=== PATIENT | male | born 1940 | race Caucasian/White ===

== ENCOUNTER 2017-09-16 17:18 | Inpatient (IN) | payer MEDICARE ==
[~2017-09-16] VITALS: Ht 170.1 cm; Wt 79.4 kg
--- NOTE | ~2017-09-16 | PR ---
[place], [place] PROGRESS NOTE NAME: JOJO ELIZONDO UNIT #: [id number] ROOM: 311 DOCTOR: ADEOLA MOYA MD BIRTHDATE: [birth year] DOS: 09/25/2017 SUBJECTIVE: The patient seen and spoke with the staff. Per staff, the patient was pretty aggressive yesterday night. He was yelling, screaming at the staff. He also attempted to urinate at one staff, but then was redirected. As per staff, he is doing well this morning. No behavior problems or issues. He took his medication also. The patient was in the day area. He told me that he is doing okay, then he tried to get up from the chair and nurses came to make sure that he is safe in walking. He was not in any distress. MENTAL STATUS EXAMINATION: The patient was pleasant and cooperative. He was alert, but not oriented to day, date, month or year. He described his mood as "okay." Affect was mood congruent. Thought processes with confabulation. No delusion or paranoia noted. He denied suicidal ideation, intent or plan. He also denied any homicidal ideation, intent or plan. PLAN: 1. Continue current medication and care. 2. Continue redirection. 3. Encourage activities in groups. 4. Supportive care. ADEOLA MOYA MD CM:PNTRANS [id number] ADEOLA MOYA MD 09/25/[id number] interface
--- NOTE | ~2017-09-16 | DS ---
[place], [place] DISCHARGE SUMMARY NAME: JOJO ELIZONDO UNIT #: [id number] ROOM: 311 DOCTOR: TANYA RODRIGUEZ DO BIRTHDATE: [birth year] DOS: 09/30/2017 Day of discharge from [facility] 09/30/2017 on hospital day #14. CHIEF COMPLAINT: "What am I doing here." HISTORY OF PRESENT ILLNESS: The patient is a 77-year-old white male with a past medical history of dementia who was brought to [facility] from [facility] from [place] due to increased agitation and threatening behavior. The patient was admitted to [facility] upon being cleared medically. He was admitted to the psychiatric unit for further care and medical stabilization. Upon admission, the patient was initially pleasant and cooperative. The patient at that point was alert and oriented to self only. He stated that he believed it was 1940. He stated that he needed to go home and feed his animals. He did admit to the medical hospitalist team within the past few weeks. He was having difficulty urinating; however, he did deny fever, chills, shortness of breath, chest pain, nausea, vomiting, diarrhea, abdominal pain and other symptoms. The head CT on 09/15/2017 showed no acute intracranial process. Chest x-ray was unremarkable and valproic acid level was found to be low at 46. The patient was unable to identify correctly the date, time, month or year. He reported to the psychiatrist that he believed he was 48 years old, even though in fact is a 77-year-old male. He did not appear to be in any acute distress. PAST MEDICAL HISTORY: Diabetes mellitus, hypertension, GERD, hyperlipidemia, history of myocardial infarction, atherosclerotic heart disease, generalized muscle weakness, acquired hypothyroidism and normocytic anemia. PAST PSYCHIATRIC HISTORY: Significant for Alzheimer's dementia and behavioral disturbances, major depressive disorder and anxiety. SOCIAL HISTORY: The patient is . He has two children. 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 He currently lives at [place]. SUBSTANCE ABUSE HISTORY: No known history of illicit drug use, alcohol. The patient did admit upon admission that he rarely drinks. He is a former smoker; however, he quit several years ago. STRENGTH: The patient has good verbal skills. ALLERGIES: THE PATIENT IS ALLERGIC TO PENICILLINS. SUMMARY OF HOSPITAL COURSE: The patient was admitted to the [facility] due to intermittent explosive disorder and Alzheimer dementia with behavioral disturbances. He was admitted to the [facility] to rule out any organic causes and for medical stabilization. Upon admission, it was decided to change his Depakote to 500 mg twice daily. Seroquel was added at 25 mg at bedtime. He was continued on Exelon 4.6 mg a day. P.r.n. medications were ordered and supportive care was rendered at that time. His home medications included Celexa, Depakote, Aricept, Namenda, melatonin, quetiapine and trazodone. No [place], [place] DISCHARGE SUMMARY NAME: JOJO ELIZONDO UNIT #: [id number] ROOM: [facility] DOCTOR: TANYA RODRIGUEZ DO BIRTHDATE: [birth year] changes were made to his psychotropic regimen the following day as he was tolerating this well. Dr. Tristen Salinas was consulted for competency evaluation. At that time, Dr. Salinas deemed to the patient not competent to make informed healthcare decisions. He then discussed guardianship issues with Dr. Porras in the morning to determine what would be appropriate for the patient. The following day, September 20, patient was started on Namenda 5 mg p.o. daily. RPR was found to be nonreactive. Valproic acid was therapeutic at 79.9. Exelon patch was gradually increased to 13.3 mg extended release daily and supplemental nutrition such as Boost was added to diet. Namenda was gradually increased to 10 mg b.i.d. and he was started on Celexa 10 mg daily at noon with the plan to discharge on 09/23/2017. However, due to increased drowsiness and irritability, there were changes made to psychotropic regimen at that time. These changes including increasing Celexa from 10 mg to 20 mg daily, Namenda remained at 10 mg b.i.d. Depakote was discontinued and Latuda was increased at 60 mg and Ativan was increased as well. These changes were done due to increased drowsiness reported by nursing staff and increased irritability towards nursing staff. Over the weekend, no changes were made to psychotropic regimen as the patient appeared to be improving with these changes and was tolerating it well without any side effects. On TuesdaySeptember 26, nursing staff reported that the patient continued to be sexually preoccupied. At that time, it was decided to discontinue Celexa. Nursing also reported that the patient had done better while on Depakote at a higher dose than on a higher dose of Latuda and that p.o. Ativan was ineffective. At this time, it was decided to discontinue Latuda and discontinued the p.o. Ativan. Depakote was restarted at 200 mg twice daily and 500 mg at bedtime to offer mood stability and we utilized Vistaril 50 mg p.o. q. 4 hours as needed as a different p.r.n. to see if this would prove to be more effective and we started a low dose of Provera 10 mg daily to decrease his libido. The patient was continued to be engaged in individual galarza milieu activities with attempts to return to the least restrictive environment, was psychiatrically stable. For the remainder of the week, the patient continued to tolerate this regimen well. He was ambulatory with a steady gait. He was able to verbalize his needs. Sleep and appetite have normalized, but he did allow staff to reorient him when needed. No side effects were exhibited from psychotropic regimen and he has improved significantly enough to be discharged at this point. He is psychiatrically and medically stable at this point for discharge. MENTAL STATUS AT DISCHARGE: The patient is alert and oriented to self only. Mood is trending towards euthymia. His affect is more appropriate. Short term and [facility] memory still are very poor and problematic. However, verbal communication has tremendously improved throughout his stay. He is now able to verbalize his needs. Sleep has improved. Appetite is now improved and readily stable. He engages in conversation readily and is easily reoriented by nursing staff. No signs of evelyn or hypomania. No signs of auditory or visual hallucinations. FINAL DIAGNOSES AT DISCHARGE: 1. Impulses control disorder, not otherwise specified. 2. Alzheimer dementia. 3. Disposition: The patient's medications have been e-prescribed to [facility] [place], [place] DISCHARGE SUMMARY NAME: JOJO ELIZONDO UNIT #: [id number] ROOM: 311 DOCTOR: TANYA RODRIGUEZ DO BIRTHDATE: [birth year] pharmacy. These have been provided electronically so that they may be readily available upon discharge. The patient to be discharged to return back to [facility]. The patient is to be followed by the staff psychiatrist there to address and continue psychotropic regimens therapy. Tanya Rodriguez DO JAMILAH PORRAS MD CM:LILLY [id number] TANYA RODRIGUEZ DO 09/30/17 1731 interface
--- NOTE | ~2017-09-16 | CON ---
[place], [place] REPORT OF CONSULTATION NAME: JOJO ELIZONDO UNIT #: [id number] ROOM: 311 DOCTOR: NIRAV TIJERINA ED.D (MOISE) BIRTHDATE: [birth year] DOS: 09/19/2017 HISTORY OF PRESENT ILLNESS: The patient is a 77-year-old male referred by Dr. Porras for competency evaluation. At the present time, he is in the [facility] at [facility]. He states he is and had 2 children. 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 He states his family physician is Dr. Saleh. His medical history is pertinent for diabetes mellitus, hypertension, GERD, myocardial infarction, arteriosclerotic heart disease and Alzheimer's dementia. His medications include insulin, lisinopril, gabapentin, Synthroid, ferrous sulfate, Exelon, Seroquel and Depakote. This patient states he rarely drinks alcoholic beverages and quit smoking many years ago. He states he is in the hospital, but has no idea what hospital he is in. He has no idea what city he is in. He has no idea of the month of the year or the year. He states this probably sometime in the 1940s, but he stated he was not certain. He is clearly quite confused and suffering from dementia. Apparently, he was quite agitated prior to admission to the hospital, although he is doing much better at this time. In my opinion, this patient is clearly not competent to make informed healthcare decisions. I am not certain whether or not he is going to be discharged back to the custodial in the next day or so; however, if he is, it will probably not be necessary to guardianship at this time. His has been making all decisions for him at the custodial. I will discuss the guardianship issues with Dr. Porras in the morning to determine whether this would be appropriate or not for this patient. DIAGNOSIS: Major neurocognitive disorder - Alzheimer disease with behavioral disturbance. RECOMMENDATIONS: In my opinion, this patient is clearly not competent to make informed healthcare decisions. Thank you very much for this consult. NIRAV TIJERINA ED.D CM:CONSTR:REPORT OF CONSULTATION 48 09/19/17 7316 interface JAMILAH PORRAS MD
--- NOTE | ~2017-09-16 | PR ---
[place], [place] PROGRESS NOTE NAME: JOJO ELIZONDO UNIT #: [id number] ROOM: 311 DOCTOR: JAMILAH PORRAS MD BIRTHDATE: [birth year] DOS: 09/19/2017 CHIEF COMPLAINT: "Quit yelling at me." SUMMARY OF THE VISIT: The patient was attempted to be interviewed when he was resting in bed. I called out his name multiple times and finally as I called the last time rather loudly, he awoke, looked angrily at me and ____ me for yelling at him. As I tried to redirect and calm him that I was just checking in on him and see if he needed anything, he continued to be somewhat terse, but more redirectable. Overall, he does seem to have been improving and while he still exit seeks, he does redirect more readily per nursing report. He is tolerating the current drug regimen well. MENTAL STATUS: He is alert and oriented to person, possibly place, not time. Mood does seem to be rather on edge, irritable, but redirectable. There is no evelyn or hypomania. There are no gross psychotic symptoms. Short term memory continues to be problematic. PLAN: I will go ahead and increase Exelon patch from 4.6 to 9.5 mg daily and plan to augment with Namenda eventually. I will check a valproic acid level in the a.m. to ensure that it is therapeutic, continue to engage in individual and galarza milieu activity, returning then to the least restrictive environment when psychiatrically stable. JAMILAH PORRAS MD CM:PNTRANS [id number] JAMILAH PORRAS MD 09/19/17 0931 interface
--- NOTE | ~2017-09-16 | PR ---
[place], [place] PROGRESS NOTE NAME: JOJO ELIZONDO UNIT #: [id number] ROOM: 311 DOCTOR: TANYA RODRIGUEZ DO BIRTHDATE: [birth year] DOS: 09/29/2017 PSYCHIATRIC PROGRESS NOTE CHIEF COMPLAINT: "When am I going home?" SUMMARY OF VISIT: The patient is a 77-year-old white male who was admitted to the [facility] from the [facility] due to increasing agitation while being a resident at a [facility]. He is currently on hospital day #13 with improved mood. The patient was interviewed this morning in the hallway. He was ambulating with a steady gait. At that time, the patient did not voice any concerns. He does report having increased appetite. Per nursing staff, the patient was noted to have urinary incontinence this morning. They also reported he had been combative towards staff; however, no signs of combative behavior were noted this morning during my visit. The patient did not voice any concerns at this time. MENTAL STATUS EXAMINATION: The patient is alert and oriented to self only. Mood is trending towards euthymic. His affect is more appropriate. Short-term memory is still very poor. The patient's verbal communication has tremendously improved throughout his stay. He is currently now able to verbalize his needs. Sleep has improved. Appetite has improved and he now readily engages in conversation. PLAN: 1. No changes to be made to current psychotropic regimen as the patient is tolerating this well. 2. We have renewed Ativan p.r.n. orders. 3. Disposition: The patient to be discharged tomorrow, Tuesday09/30/2017 back to [facility]. We will continue to engage the patient in individual and galarza milieu activity, returning to the least restrictive environment when psychiatrically stable. Tanya Rodriguez DO [place], [place] PROGRESS NOTE NAME: JOJO ELIZONDO UNIT #: [id number] ROOM: 311 DOCTOR: TANYA RODRIGUEZ DO BIRTHDATE: [birth year] JAMILAH PORRAS MD CM:MESHA 1 [id number] TANYA RODRIGUEZ DO 09/29/17 1333 interface
--- NOTE | ~2017-09-16 | PR ---
[place], [place] PROGRESS NOTE NAME: JOJO ELIZONDO UNIT #: [id number] ROOM: 311 DOCTOR: TANYA RODRIGUEZ DO BIRTHDATE: [birth year] DOS: 09/21/2017 CHIEF COMPLAINT: "I am chewing tobacco." SUBJECTIVE: The patient is a 77-year-old white male who was admitted to the [facility] from [facility] due to increasing agitation while being a resident at a detention, currently on hospital day #5 with improvement in mood. The patient was initially interviewed in the dining room. The patient reported poor appetite and stated that he needs to force himself to eat, however, later nursing staff reported the patient completed 100% consumption of his breakfast. The patient at this time was requesting chocolate milk. I asked him if he was still hungry. He said he would be willing to try Boost supplement. The patient was sitting in the dining room with another male patient eating breakfast together. The patient did not voice any other concerns at this time. The patient appeared to be confused, but he did not show any signs of combative behavior. MENTAL STATUS EXAMINATION: The patient is alert and oriented to self only. Mood is trending towards euthymic. Affect is appropriate. Short term memory still continues to be problematic. The patient was later interviewed and found to be consuming tissue paper. This was when he offered to share his chewing tobacco. The patient cannot recall if he had had breakfast that morning. PLAN: 1. We have increased Namenda 5 mg p.o. daily to 5 mg twice daily. 2. The patient started on Exelon patch 13.3 mg patch extended release daily. 3. Supplemental nutrition Boost has been ordered. 4. The patient likely to be discharged on 09/23/2017. Until then we will continue to engage the patient in individual and galarza new activity, returning to the least restrictive environment when psychiatrically stable. Tanya Rodriguez DO [place], [place] PROGRESS NOTE NAME: JOJO ELIZONDO UNIT #: [id number] ROOM: 311 DOCTOR: TANYA RODRIGUEZ DOTE: 41 JAMILAH PORRAS MD CM:MESHA [id number] TANYA RODRIGUEZ DO 09/21/17 2240 interface
--- NOTE | ~2017-09-16 | PR ---
[place], [place] PROGRESS NOTE NAME: JOJO ELIZONDO UNIT #: [id number] ROOM: 311 DOCTOR: TANYA RODRIGUEZ DO BIRTHDATE: [birth year] DOS: 09/22/2017 CHIEF COMPLAINT: "Can I have something to drink?" SUMMARY OF VISIT: The patient is a 77-year-old white male who was admitted to the [facility] from [facility] due to increasing agitation while being a resident in a long-term, currently on hospital day #6 with mood irritability last night. Per nursing staff, the patient became disruptive and intrusive towards other patients on the galarza and towards nursing staff. The patient became irritable and began to yell at staff. He made verbal comments that were sexually oriented towards another female patient. Attempts to intervene with one-on-one talking with staff, reorienting the patient and removing him from the room and placing him in a quiet environment did not appear to be effective. Ativan p.o. p.r.n. was given at 18:37. The patient slept 8 hours. This morning the patient was sleeping and was later interviewed in the hallway. He was in a wheelchair at that time. The patient then reported he was thirsty and was inquiring if he could have something to drink. The patient did not wake up for breakfast this morning. The patient was provided Ensure for nutritional supplement at that time. The patient does not voice any concerns at this point. No signs of combative behavior were noted this morning during assessment: The patient did appear to be slightly confused. The patient is currently eating lunch and does not appear to be in any kind of distress. MENTAL STATUS EXAMINATION: The patient is alert and oriented to self only. Mood last night was labile. Affect is appropriate this morning. Short term memory is still problematic as it has gaps. The patient once again could not recall if he had had breakfast; however, per nursing staff, he was sleeping. During the time breakfast trays were passed out, the patient was in the galarza. PLAN: 1. Increase Namenda from 5 mg twice daily to 10 mg in the morning and 5 mg at bedtime. 2. The patient to start Celexa 10 mg every afternoon at noon, 1200. 3. Continue supplemental nutrition with Ensure as ordered. 4. The patient to be discharged to [facility], likely to be discharged tomorrow, 09/23/2017. We will continue to engage the patient in individual and galarza milieu activity, returning to the least restrictive environment when psychiatrically stable. Tanya Rodriguez DO [place], [place] PROGRESS NOTE NAME: JOJO ELIZONDO UNIT #: [id number] ROOM: [facility] DOCTOR: TANYA RODRIGUEZ DO BIRTHDATE: [birth year] JAMILAH PORRAS MD CM:PNCELINA [id number] TANYA RODRIGUEZ DO 09/22/17 1618 interface
--- NOTE | ~2017-09-16 | PR ---
[place], [place] PROGRESS NOTE NAME: JOJO ELIZONDO UNIT #: [id number] ROOM: 311 DOCTOR: TANYA RODRIGUEZ DO BIRTHDATE: [birth year] DOS: 09/27/2017 CHIEF COMPLAINT: "Oh hello, good morning." SUMMARY OF VISIT: The patient is a 77-year-old white male who was admitted to the [facility] from [facility] due to increasing agitation while being a resident at a correction, currently on hospital day #11 with improved mood and decreased irritability. Per nursing staff, the patient slept more than 8 hours last night, which was not interrupted. The patient was interviewed this morning in the dining room. He was eating breakfast. He did not appear to be in any distress. The patient denies pain and do not voice any complaints at this time. Per nursing staff, the patient does not verbalized any inappropriate sexual comments towards nursing staff and other patients in the galarza. The patient overall appears to be doing better. MENTAL STATUS EXAMINATION: The patient is alert and oriented to self. Mood is appropriate. Affect is appropriate. Short term memory still appears to be problematic. The patient was able to verbalize that he did not need anything at this time. He did state that he slept better last night. PLAN: 1. The patient is scheduled to receive Vistaril 50 mg p.o. every 1600. 2. The patient likely to be discharged on 09/30/2017, back to [facility]. The patient appears to be responding well to current psychotropic regimen. No other changes to be made at this time. We will continue to engage the patient in individual and galarza milieu activity, returning to the least restrictive environment when psychiatrically stable. Tanya Rodriguez, DO JAMILAH PORRAS MD CM:MESHA [id number] TANYA RODRIGUEZ DO 09/27/17 1119 interface
--- NOTE | ~2017-09-16 | WRIGHTHP ---
[place], [place] PATIENT HISTORY AND PHYSICAL EXAM [id number] UN[facility] #: [id number] ROOM: 311 DOCTOR: ADEOLA MOYA MD BIRTHDATE: [birth year] DOS: 09/16/2017 REASON FOR HOSPITALIZATION: Increased agitation, threatening staff and other resident in the longterm. HISTORY OF PRESENT ILLNESS: The patient seen and chart reviewed. A 77-year-old white male with history of dementia who was brought into [facility] from longterm for increased agitation and threatening behavior. The patient got cleared medically into the ER and then sent to the psychiatric unit for further care and stabilization. The patient was initially pleasant and cooperative. He was sitting in the dining area. He reports doing well. He said that he does not know why he was brought in here. He told me that he also does not know where he is right now. He wanted to go home. He claims that his and his pets are at home. The patient is not aware of the day, date, month, or year. He told me that he is a 48-year-old, but the fact is that he is a 77-year-old. He was not in any acute distress. PAST MEDICAL HISTORY: Diabetes mellitus, hypertension, GERD, hyperlipidemia, history of myocardial infarction, atherosclerotic heart disease, generalized muscle weakness. PAST PSYCHIATRIC HISTORY: Significant for Alzheimer's dementia and behavioral disturbances. SUBSTANCE ABUSE HISTORY: No drugs or alcohol. SOCIAL HISTORY: The patient was staying in a longterm. He was not able to provide any detail. MENTAL STATUS EXAMINATION: The patient was pleasant and cooperative at first, but later on becomes irritable and angry. He was alert, but not oriented to day, date, month, or year. He described his mood as "I don't know." Affect was labile, irritable, angry. Thought processes with confabulation. He denied auditory or visual hallucination. No delusion or paranoia noted. He denied suicidal ideation, intent or plan. He also denied any homicidal ideation, intent or plan. Insight and judgment impaired. ASSESSMENT: 1. Intermittent explosive disorder. 2. Alzheimer's dementia with behavioral disturbances. PLAN: 1. I will change his Depakote to 500 mg twice a day. 2. I will add Seroquel 25 mg at night. 3. I will continue Exelon 4.6 mg a day. 4. We will continue p.r.n. medication. 5. Continue redirection and supportive care. [place], [place] PATIENT HISTORY AND PHYSICAL EXAM NAME: JOJO ELIZONDO UNIT #: [id number] ROOM: [facility] DOCTOR: ADEOLA MOYA MD BIRTHDATE: [birth year] 6. Encourage activity in groups. ADEOLA MOYA MD CM:HISPHYS:PATIENT HISTORY AND PHYSICAL EXAMINATION [id number] ADEOLA MOYA MD 09/17/17 2136 interface
--- NOTE | ~2017-09-16 | PR ---
[place], [place] PROGRESS NOTE NAME: JOJO ELIZONDO UNIT #: [id number] ROOM: 311 DOCTOR: TANYA RODRIGUEZ DO BIRTHDATE: [birth year] DOS: 09/23/2017 He is a 77-year-old male. CHIEF COMPLAINT: "I need to take a league." SUMMARY OF VISIT: The patient is a 77-year-old white male who was admitted to the [facility] from [facility] due to increasing agitation while being a resident in a [facility], currently on hospital day #7 with persistent mood instability and irritability last night. Per nursing staff, the patient became combative. He was noted to be beating on doors and windows. He was yelling at that time. Attempts to redirect the patient were not effective. The patient was given 1 mg Ativan p.o. at 1800. This morning, the patient was found to be groggy and sleeping. He did not eat breakfast this morning. The patient was later instructed to attend group; however, he was noted to be sleeping at this time. The patient was then interviewed in a wheelchair in the hallway where he stated he needed to use the restroom. The patient was falling asleep mid-sentence; however, was easily arousable, but sleepy. The patient did not voice any concerns at this time. The patient denied being hungry. He did report that he would not like to have a snack at this time. MENTAL STATUS EXAMINATION: The patient is alert and oriented to self only. Mood is labile and volatile. Affect is drowsy and lethargic, but easily arousable. Short term memory is still problematic. The patient was falling asleep mid-sentence through examination this morning. He was unable to answer questions appropriately. The patient was unable to answer questions at this time. PLAN: 1. The plan to discharge the patient to [facility] has been placed on hold due to patient's increased irritability and drowsiness. The patient likely to be discharged sometime next week. 2. The following changes to psychotropic regimen have been made. We have increased the Celexa from 10 mg to 20 mg every noon, 1200. We have increased Namenda from 5 mg p.o. b.i.d. to 10 mg b.i.d. We have discontinued Depakote. We have increased Latuda to 60 mg p.o. q. 1600 We have decreased Ativan from 1 mg p.o. p.r.n. to 0.5 mg p.o. and IM q. 4 hours p.r.n. as the patient sometimes has refused p.o. medication. 3. We will continue to engage the patient in individual and galarza milieu activity with plan to returning to the least restrictive environment when psychiatrically stable. Tanya Rodriguez DO [place], [place] PROGRESS NOTE NAME: JOJO ELIZONDO UNIT #: [id number] ROOM: [facility] DOCTOR: TANYA RODRIGUEZ DO BIRTHDATE: [birth year] JAMILAH PORRAS MD CM:MESHA [id number] TANYA RODRIGUEZ DO 09/23/17 1534 interface
--- NOTE | ~2017-09-16 | PR ---
[place], [place] PROGRESS NOTE NAME: JOJO ELIZONDO UNIT #: [id number] ROOM: 311 DOCTOR: ADEOLA MOYA MD BIRTHDATE: [birth year] DOS: 09/24/2017 PSYCHIATRIC PROGRESS NOTE SUBJECTIVE: The patient seen and spoke with staff. Per staff, patient's is doing better today, but usually he gets pretty irritable, angry and confused at the noon time. Per nursing staff, his medication got changed yesterday and has been doing well since then. The patient was pleasant and cooperative. He was in the day area in a chair. He reports doing okay. He was not in any distress. He is compliant with his medication and there is no side effect from the medication. MENTAL STATUS EXAMINATION: Pleasant, cooperative, described his mood as "okay/" Affect was mood congruent. Thought process with confabulation. He denied auditory or visual hallucination. No delusion or paranoia noted. He denied suicidal ideation, intent or plan. He also denied homicidal ideation, intent or plan. PLAN: 1. Continue current medication and care. 2. Continue redirection. 3. Encourage activity in groups. 4. Supportive care. ADEOLA MOYA MD CM:PNTRANS [phone] ADEOLA MOYA MD 09/24/17 2016 interface
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
--- NOTE | ~2017-09-16 | PR ---
[place], [place] PROGRESS NOTE NAME: JOJO ELIZONDO UNIT #: [id number] ROOM: 311 DOCTOR: ADEOLA MOYA MD BIRTHDATE: [birth year] DOS: 09/18/2017 PSYCHIATRIC PROGRESS NOTE SUBJECTIVE: The patient was seen and spoke with the staff. Per staff, the patient got p.r.n. medication last night, wanted to leave. Per nursing staff, he has been sleeping since then. No other behavioral problems or issues. The patient was pleasant and cooperative. He was in his bed, sleeping. When I called his name, he opened his eyes, but then fell back to sleep again. He did not answer any of my question. He does not seem to be in any distress. MENTAL STATUS EXAMINATION: The patient was pleasant and cooperative. He was alert. Not able to do full mental status examination as the patient was in full sleep. PLAN: 1. Continue current medication and care. 2. Encourage activities in groups. 3. Continue redirection. 4. Final medication management and discharge planning by the regular team. ADEOLA MOYA MD CM:PNTRANS [phone] ADEOLA MOYA MD 09/18/172041 interface
--- NOTE | ~2017-09-16 | PR ---
[place], [place] PROGRESS NOTE NAME: JOJO ELIZONDO UNIT #: [id number] ROOM: 311 DOCTOR: TANYA RODRIGUEZ DO BIRTHDATE: [birth year] DOS: 09/28/2017 CHIEF COMPLAINT: "I am still hungry." SUMMARY OF VISIT: The patient is a 77-year-old white male who was admitted to the [facility] from [facility] due to increasing agitation while being a resident at a residential. He is currently on hospital day #12 with improved mood and decreased volatile behavior. Per nursing staff, the patient last night attempted to elope the U. He was noted to be kicking doors and continued to be agitated. Vistaril p.r.n. was given at 10:00 p.m., which appeared to be effective. The patient slept 7.5 hours uninterrupted per nursing staff. This morning, the patient was interviewed in the hallway. He appeared to be looking out the window at that time. When asked if he had eaten breakfast, he said no; however, nursing staff confirmed that they had seen him eating breakfast this morning. The patient does not appear to recall eating breakfast. The patient denies any pain and does not voice any other complaints besides stating that he is still hungry. The patient has had notable increase in appetite during stay. No combative behavior or sexual comments towards nursing staff were noted during visit this morning. He was appropriate. Overall, the patient appeared to be doing better this morning. He is more conversant and was able to ambulate without assistance with a steady gait. MENTAL STATUS EXAMINATION: The patient is alert and oriented to self only. Mood is trending towards euthymic. Affect is appropriate. Short-term memory still is problematic and he continues to have gaps in both short-term and long-term memory. He is now able to verbalize his needs. Sleep has improved. ASSESSMENT: The patient is now more easily reoriented by nursing staff and he continues to increase his verbal communication with staff. Gait is now more steady and normal. He is able to ambulate in the halls with a steady gait and without assistance. PLAN: 1. No changes to be made to current psychotropic regimen as the patient is tolerating this therapy well. 2. The patient likely to be discharged on 09/30/2017 back to [facility]. The patient appears to be responding well to psychotropic regimen. No other changes to be made at this time. We will continue to engage the patient in individual and galarza milieu activity, returning to the least restrictive environment when psychiatrically stable. Tanya Rodriguez DO [place], [place] PROGRESS NOTE NAME: JOJO ELIZONDO UNIT #: [id number] ROOM: [facility] DOCTOR: TANYA RODRIGUEZ DO BIRTHDATE: [birth year] JAMILAH PORRAS MD CM:PNCELINA [id number] TANYA RODRIGUEZ DO 09/29/17 0013 interface
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
[2017-09-16] MEDS ORDERED: ASPIRIN LITE C325 MG PO (18:11)
[2017-09-16] MEDS ORDERED: VITAMIN D31000 UNIT PO (18:12)
[2017-09-16] MEDS ORDERED: CELEXA20 MG PO (18:14)
[2017-09-16] MEDS ORDERED: B12,B-12,B 12500 MC1 PO (18:15)
[2017-09-16] MEDS ORDERED: FENOFIBRATE MI200 MG PO (18:15)
[2017-09-16] MEDS ORDERED: LANTUS SOL100 UNIT/1 SQ (18:18)
[2017-09-16] MEDS ORDERED: ARICEPT10 M1 PO (18:19)
[2017-09-16] MEDS ORDERED: SYNTHROID25 MCG PO (18:20)
[2017-09-16] MEDS ORDERED: ZESTRIL,PRINIVIL5 MG PO (18:21)
[2017-09-16] MEDS ORDERED: MELATONIN3 MG PO (18:22)
[2017-09-16] MEDS ORDERED: OMEPRAZOLE D/R20 MG PO (18:23)
[2017-09-16] MEDS ORDERED: PRAVACHOL40 MG PO (18:24)
[2017-09-16] MEDS ORDERED: QUETIAPINE FUMA25 M1 PO (18:24)
[2017-09-16] MEDS ORDERED: ASCORBIC ACID250 M1 PO (18:26)
[2017-09-16] MEDS ORDERED: CARVEDILOL6.25 MG PO (18:28)
[2017-09-16] MEDS ORDERED: FERROUS SULFAT325 MG PO (18:29)
[2017-09-16] MEDS ORDERED: BOOST GLUCOSE237 ML PO (18:31)
[2017-09-16] MEDS ORDERED: MAGNESIUM400 M1 PO (18:32)
[2017-09-16] MEDS ORDERED: GLUCOPHAGE500 M1 PO (18:32)
[2017-09-16] MEDS ORDERED: DEPAKOTE SPRIN125 MG PO (18:35)
[2017-09-16] MEDS ORDERED: GABAPENTIN400 MG PO (18:35)
[2017-09-16] MEDS ORDERED: HUMULIN R500 UNIT/1 SQ (18:37)
[2017-09-16] MEDS ORDERED: TRAZODONE50 MG PO (18:41)
[2017-09-16 20:32] VITALS: BP 105/62
[2017-09-16 22:02] VITALS: BP 105/62
[2017-09-17 05:37] LABS: BILIRUBIN NEGATIVE (NEGATIVE); BLOOD NEGATIVE (NEGATIVE); CLARITY SL CLOUDY (CLEAR); COLOR YELLOW (YELLOW); GLUCOSE NEGATIVE (NEGATIVE); KETONE NEGATIVE (NEGATIVE); LEUKO ESTERASE NEGATIVE (NEGATIVE); NITRITE NEGATIVE (NEGATIVE); SPECIFIC GRAVITY 1.015 (1.005-1.030)
[2017-09-17 06:58] LABS: BASO % 0.2 % (0.0-1.0); EOS # 0.3 10*3/uL (0.0-0.4); EOS % 6.6 % (1.0-4.0); HEMATOCRIT 29.4 % (42.0-52.0); HEMOGLOBIN 9.1 g/dl (14.0-18.0); LYMPH # 1.1 10*3/uL (1.3-4.4); LYMPH % 21.8 % (27.0-41.0); MEAN CELL VOLUME 85.5 fl (80.0-94.0); MEAN CORPUSCULAR HGB 26.5 pg (27.0-31.0); MEAN PLATELET VOLUME 12.4 fl (9.6-12.3); MONO # 0.6 10*3/uL (0.1-1.0); MONO % 10.8 % (3.0-9.0); NEUT # 3.1 10*3/uL (2.3-7.9); NEUT % 60.2 % (47.0-73.0); PLATELET COUNT AUTOMATED 137 10*3/uL (130-400); RED BLOOD COUNT 3.44 10*6/uL (4.50-5.90); RED CELL DISTRI WIDTH 18.5 % (0-14.5); WHITE BLOOD COUNT 5.2 10*3/uL (4.8-10.8)
[2017-09-17 07:12] LABS: BUN 19 mg/dl (7-24); CHLORIDE 101 mmol/L (98-107); CHOLESTEROL 91 mg/dL (<200); CREATININE 1.17 mg/dL (0.70-1.30); POTASSIUM 3.9 mmol/L (3.5-5.1); SODIUM 139 mmol/L (136-145); TOTAL PROTEIN 6.3 gm/dL (6.4-8.2); TRIGLYCERIDES 107 mg/dl (<150); VLDL CHOLESTEROL 21 mg/dL (6-40)
[2017-09-17 07:25] LABS: ALKALINE PHOSPHATASE 44 U/L (45-117); HDL CHOLESTEROL 17 mg/dl (40-60); LDL CHOLESTEROL 53 mg/dL (9-159); SGOT/AST 17 IU/L (3-35); SGPT/ALT 11 U/L (12-78); VALPROIC ACID (DEPAKENE) 45.5 ug/ml (50-100)
[2017-09-17 07:58] VITALS: BP 111/62
[2017-09-17 20:00] VITALS: BP 122/62
[2017-09-18 06:21] LABS: BASO % 0.5 % (0.0-1.0); EOS # 0.4 10*3/uL (0.0-0.4); HEMATOCRIT 30.7 % (42.0-52.0); HEMOGLOBIN 9.5 g/dl (14.0-18.0); LYMPH # 1.1 10*3/uL (1.3-4.4); LYMPH % 18.4 % (27.0-41.0); MEAN CELL VOLUME 85.5 fl (80.0-94.0); MEAN CORPUSCULAR HGB 26.5 pg (27.0-31.0); MEAN CORPUSCULAR HGB CONC 30.9 g/dl (33.0-37.0); MEAN PLATELET VOLUME 12.7 fl (9.6-12.3); MONO # 0.6 10*3/uL (0.1-1.0); MONO % 10.2 % (3.0-9.0); NEUT # 3.9 10*3/uL (2.3-7.9); NEUT % 64.6 % (47.0-73.0); PLATELET COUNT AUTOMATED 134 10*3/uL (130-400); RED BLOOD COUNT 3.59 10*6/uL (4.50-5.90); RED CELL DISTRI WIDTH 18.4 % (0-14.5)
[2017-09-18 08:42] VITALS: BP 124/68
[2017-09-18 20:00] VITALS: BP 109/61
[2017-09-19 07:32] VITALS: BP 128/68
[2017-09-19 20:00] VITALS: BP 125/65
[2017-09-20 08:51] VITALS: BP 112/58
[2017-09-20 19:12] VITALS: BP 110/58
[2017-09-21 07:46] VITALS: BP 119/68
[2017-09-21 19:17] VITALS: BP 111/65
[2017-09-22 08:03] VITALS: BP 116/72
[2017-09-22 19:45] VITALS: BP 115/70
[2017-09-23 07:31] VITALS: BP 128/68
[2017-09-23 20:25] VITALS: BP 120/64
[2017-09-24 07:50] VITALS: BP 115/84
[2017-09-24 20:00] VITALS: BP 106/82
[2017-09-25 08:11] VITALS: BP 120/67
[2017-09-25 20:00] VITALS: BP 115/67
[2017-09-26 07:44] VITALS: BP 104/64
[2017-09-26 20:00] VITALS: BP 106/67
[2017-09-27 07:43] VITALS: BP 115/67
[2017-09-27 19:57] VITALS: BP 102/66
[2017-09-28 07:48] VITALS: BP 107/65
[2017-09-28 20:00] VITALS: BP 109/49
[2017-09-29 07:34] VITALS: BP 112/66
[2017-09-29 20:18] VITALS: BP 104/58
[2017-09-30 07:53] VITALS: BP 102/60
[2017-09-30] MEDS ORDERED: EXELON13.3 MG/21 T (09:34)
[2017-09-30] MEDS ORDERED: DIVALPROEX SOD125 M1 PO ×2 (09:34)
[2017-09-30] MEDS ORDERED: MEMANTINE HCL10 MG PO (09:34)
[2017-09-30] MEDS ORDERED: MEDROXYPROGESTE10 M1 PO (09:34)
== END 2017-09-30 18:11 | disposition other institution (70) | DRG 883 ==
LOC: 3N 17:18
PROVIDERS: Internal Medicine; Psychiatry & Neurology Psychiatry
DX: F63.81 Intermittent explosive disorder (principal); E11.40 Type 2 diabetes mellitus with diabetic neuropathy, unspecified; D64.9 Anemia, unspecified; F02.81 Dementia in other diseases classified elsewhere, unspecified severity, with behavioral disturbance; E03.9 Hypothyroidism, unspecified; E78.5 Hyperlipidemia, unspecified; I10 Essential (primary) hypertension; K21.9 Gastro-esophageal reflux disease without esophagitis; I25.10 Atherosclerotic heart disease of native coronary artery without angina pectoris; G30.0 Alzheimer's disease with early onset; R26.9 Unspecified abnormalities of gait and mobility; F41.9 Anxiety disorder, unspecified; F32.9 Major depressive disorder, single episode, unspecified; I25.2 Old myocardial infarction; Z87.891 Personal history of nicotine dependence; Z79.4 Long term (current) use of insulin

== ENCOUNTER 2017-09-16 19:13 | Emergency (ER) | payer MEDICARE ==
[~2017-09-16] VITALS: Ht 165.1 cm; Wt 68.9 kg
[~2017-09-16 19:13] MED LIST: ARICEPT10 M1 PO; ASCORBIC ACID250 M1 PO; ASPIRIN LITE C325 MG PO; B12,B-12,B 12500 MC1 PO; BOOST GLUCOSE237 ML PO; CARVEDILOL6.25 MG PO; CELEXA20 MG PO; DEPAKOTE SPRIN125 MG PO; FENOFIBRATE MI200 MG PO; FERROUS SULFAT325 MG PO; GABAPENTIN400 MG PO; GLUCOPHAGE500 M1 PO; HUMULIN R500 UNIT/1 SQ; LANTUS SOL100 UNIT/1 SQ; MAGNESIUM400 M1 PO; MELATONIN3 MG PO; OMEPRAZOLE D/R20 MG PO; PRAVACHOL40 MG PO; QUETIAPINE FUMA25 M1 PO; SYNTHROID25 MCG PO; TRAZODONE50 MG PO; VITAMIN D31000 UNIT PO; ZESTRIL,PRINIVIL5 MG PO
== END 2017-09-16 22:26 | disposition home health service (06) ==
LOC: ED 19:13
DX: F63.81 Intermittent explosive disorder (principal); F03.90 Unspecified dementia, unspecified severity, without behavioral disturbance, psychotic disturbance, mood disturbance, and anxiety; Z98.890 Other specified postprocedural states; Z79.4 Long term (current) use of insulin; Z79.82 Long term (current) use of aspirin; Z79.899 Other long term (current) drug therapy